=== PATIENT | female | born 1955 | race Caucasian/White ===

== ENCOUNTER 2017-02-26 00:56 | Observation (INO) | payer MEDICARE, MEDICAID ==
[~2017-02-26] VITALS: Ht 152.4 cm; Wt 77.8 kg
[~2017-02-26 00:56] MED LIST: ASPI-496 PO; ENAL2.5T PO; METF500T4 PO; METF500T9 PO
[2017-02-26] MEDS ORDERED: LISI1TAB7 PO ×2 (01:57→13:29)
[2017-02-26] MEDS ORDERED: LINA5TAB PO ×2 (01:58→13:29)
[2017-02-26] MEDS ORDERED: GABA300C10 PO ×2 (01:59→13:29)
[2017-02-26] MEDS ORDERED: ASPIRIN 81 MG TABLET CHEW PO ONE (02:00)
[2017-02-26] MEDS ORDERED: NITROGLYCERIN SINGLE TAB 0.4 MG SL PRN (02:00)
[2017-02-26] MEDS ORDERED: SODIUM CHLORIDE 0.9% 1,000ML IVBOLUS ONE (02:00)
[2017-02-26] MEDS ORDERED: SODIUM CHLORIDE FLUSH 10ML SYR IVF ONE (02:00)
[2017-02-26] MEDS ORDERED: NITROGLYCERIN SINGLE TAB 0.4 MG SL ONE ×2 (02:03→03:08)
[2017-02-26] MEDS ORDERED: ASPIRIN 81 MG TABLET CHEW ONE (02:04)
[2017-02-26 02:12] LABS: ASPARTATE AMINO TRANSFERASE 99 U/L (15-37); BLOOD UREA NITROGEN 8 mg/dL (7-18)
[2017-02-26 02:18] LABS: IS PT STATUS REG ER OR PRE ER? YES
[2017-02-26] MEDS ORDERED: SODIUM CHLORIDE 0.9% 1,000 ML IV SCH (03:38)
[2017-02-26] MEDS ORDERED: ENOXAPARIN 40 MG/0.4 ML SQ SCH (04:00)
[2017-02-26] MEDS ORDERED: POLYETHYLENE GLYCOL 17 GM PACKET PO PRN (04:00)
[2017-02-26] MEDS ORDERED: LABETALOL 5MG/ML, 20ML IVPush PRN (04:00)
[2017-02-26] MEDS ORDERED: BISACODYL 10 MG SUPP PR PRN (04:00)
[2017-02-26] MEDS ORDERED: ONDANSETRON ODT 4 MG PO PRN (04:00)
[2017-02-26] MEDS ORDERED: ATORVASTATIN 80 MG TABLET PO SCH (04:00)
[2017-02-26] MEDS ORDERED: DOCUSATE 100 MG CAPSULE PO PRN (04:00)
[2017-02-26 04:15] VITALS: BP 163/91
[2017-02-26 04:17] VITALS: BP 163/76
[2017-02-26] MEDS: INSULIN ASPART 100 UNITS/ML, PEN SQ-INSULIN SCH ×2 (07:00→13:32)
[2017-02-26 07:51] VITALS: BP 143/83
[2017-02-26 08:09] LABS: IS PT STATUS REG ER OR PRE ER? NO
[2017-02-26] MEDS ORDERED: ASPIRIN 81 MG TABLET EC PO SCH (09:00)
[2017-02-26] MEDS ORDERED: TEMPLATE NON-FORMULARY MED. (Linagliptin** (Tradjenta**) 5 MG) HOMEMEDPO SCH (09:00)
[2017-02-26 10:30] LABS: HEPATITIS C VIRUS ANTIBODY Nonreactive (Nonreactive)
[2017-02-26] MEDS ORDERED: REGADENOSON 0.4 MG/5 ML SYRINGE ONE (10:57)
[2017-02-26] MEDS ORDERED: METF500T4 PO (13:29)
[2017-02-26] MEDS ORDERED: ASPI-496 PO (13:29)
[2017-02-26] MEDS ORDERED: GABAPENTIN 300 MG CAPSULE PO SCH (21:00)
[2017-02-26] MEDS ORDERED: LISINOPRIL 20 MG TABLET PO SCH (21:00)
[2017-02-26] MEDS ORDERED: HYDROCHLOROTHIAZIDE 25 MG TABLET PO SCH (21:00)
[2017-03-08] MEDS ORDERED: SIMV5TAB5 PO (06:32)
[2017-03-08] MEDS ORDERED: ASPI-515 PO (06:46)
[2017-03-08] MEDS ORDERED: METF10002 PO (06:46)
[2017-03-08] MEDS ORDERED: GABA300C10 PO (06:46)
[2017-03-08] MEDS ORDERED: LINA5TAB PO (06:46)
== END 2017-02-26 14:58 | disposition home or self-care (01) ==
LOC: ED 02:13 → EDIP 02:56 → INTOOBSV 02:56 → 5SO 03:58 → DCLOUNGE 14:47
PROVIDERS: ADMIT Internal Medicine; ATTEND Internal Medicine
DX: R07.89 Other chest pain (principal); E78.5 Hyperlipidemia, unspecified; I10 Essential (primary) hypertension; E11.9 Type 2 diabetes mellitus without complications; E87.1 Hypo-osmolality and hyponatremia; R79.89 Other specified abnormal findings of blood chemistry; E88.09 Other disorders of plasma-protein metabolism, not elsewhere classified; J98.11 Atelectasis
CPT/HCPCS: 36415; 71020; 78452; 80053; 80074; 82962; 83036; 84439; 84443; 84484; 85025; 93005; 93017; 96360; 96361; 96372; A9502; C9898; G0378; J1650; J1815; J2785; J7030

== ENCOUNTER 2019-02-01 02:37 | Emergency (ER) | payer MEDICARE, MEDICAID ==
[~2019-02-01] VITALS: Ht 154.9 cm; Wt 76.1 kg
[~2019-02-01 02:37] MED LIST changes: +ASPI-515 PO; +GABA300C10 PO; +LINA5TAB PO; +LISI1TAB7 PO; +METF10002 PO; +METF500T17 PO; -METF500T4 PO; +SIMV5TAB14 PO
--- NOTE | 2019-02-01 03:30 | NUR ---
BREAK RN: PT REPORTS LEFT SIDED CHEST PAIN THAT CAME ON AT 1 AM. THE PAIN HAS NOW RESOLVED. NO ACUTE DISTRES NOTED. CLIENT EXPERIENCE ADMINISTRATOR ON. NSR NOTED. FAMILY AT BEDSIDE. CALL LIGHT IN PLACE. WILL CONTINUE TO MONITOR WHILE PRIMARY RN IS ON BREAK
[2019-02-01] MEDS ORDERED: GABA300C10 PO (03:36)
[2019-02-01] MEDS ORDERED: LISI1TAB7 PO (03:37)
[2019-02-01 03:48] LABS: BASOPHILS # (AUTO) 0.03 x10^3/uL (0-0.1); BASOPHILS % (AUTO) 0 % (0-1); EOSINOPHILS # (AUTO) 0.24 x10^3/uL (0-0.4); EOSINOPHILS % (AUTO) 2 % (1-7); LYMPHOCYTES # (AUTO) 1.65 x10^3/uL (1-3.4); LYMPHOCYTES % (AUTO) 14 % (22-44); MD NO; MEAN CORPUSCULAR HEMOGLOBIN 30.2 pg (27.0-34.8); MEAN CORPUSCULAR HGB CONC 33.7 g/dL (32.4-35.8); MEAN CORPUSCULAR VOLUME 89.8 fL (80-100); MEAN PLATELET VOLUME 7.9 fL (7.4-10.4); MONOCYTES # (AUTO) 0.73 x10^3/uL (0.2-0.8); MONOCYTES % (AUTO) 6 % (2-9); NEUTROPHILS # (AUTO) 8.96 x10^3/uL (1.8-6.8); NEUTROPHILS % (AUTO) 77 % (42-75); PLATELET COUNT 344 x10^3/uL (130-400); RED BLOOD COUNT 4.36 x10^6/uL (3.82-5.3); RED CELL DISTRIBUTION WIDTH 13.3 % (9.6-15.2)
[2019-02-01 03:56] LABS: INTERNATIONAL NORMALIZED RATIO 0.92 (0.93-1.1); PROTHROMBIN TIME 9.7 Seconds (9.6-11.5)
[2019-02-01 03:57] LABS: ALANINE AMINOTRANSFERASE 23 U/L (12-78); ALBUMIN 3.4 g/dL (3.4-5.0); ANION GAP 9 mmol/L (5-15); CHLORIDE 98 mmol/L (98-107); CREATININE 0.82 mg/dL (0.55-1.02)
[2019-02-01 04:01] LABS: ALKALINE PHOSPHATASE 141 U/L (45-117); BILIRUBIN,TOTAL 0.2 mg/dL (0.2-1.0); TOTAL PROTEIN 7.1 g/dL (6.4-8.2); TROPONIN I < 0.015 ng/mL (0.000-0.045)
[2019-02-01 04:51] VITALS: BP 102/59
== END 2019-02-01 04:53 | disposition home or self-care (01) ==
LOC: ED 03:44
DX: R07.89 Other chest pain (principal); E78.00 Pure hypercholesterolemia, unspecified; Z90.49 Acquired absence of other specified parts of digestive tract
CPT/HCPCS: 36415; 71045; 80053; 83880; 84484; 85025; 85610; 85730; 93005; 99284